=== PATIENT | female | born 1955 | race Caucasian/White ===

== ENCOUNTER 2025-05-05 20:02 | Emergency (ER) | payer MEDICARE, OTHER, SELFPAY ==
[2025-05-05 20:11] VITALS: BP 122/75
[2025-05-05 23:10] VITALS: BMI 29.5
[2025-05-05 23:13] VITALS: BP 136/80
--- NOTE | 2025-05-05 23:40 | ED.GENMED ---
History of Present Illness
General
Chief Complaint: Fall
Source: patient and spouse
Exam Limitations: none
Time Seen by Provider: 05/05/25 22:42
Nursing documentation reviewed up to this point in time: agreed with
History of Present Illness
History of Present Illness:
Note:
CHIEF COMPLAINT(S)
Left elbow pain and swelling following a fall.
HISTORY OF PRESENT ILLNESS
The patient is a 70-year-old female who sustained an injury to her left elbow after tripping in the dark over a cement block. The patient reported significant pain in the left elbow which she can tolerate when the arm is held still, but experiences
an 'ache' upon movement. The pain level is manageable when stationary. There is noticeable swelling around the elbow, and the injury was confirmed as a fracture. The patient denies any injuries elsewhere and reports no head trauma or loss of
consciousness.
PHYSICAL EXAM
General: Alert, no acute distress.
Skin: Warm, dry.
Musculoskeletal: Swelling and tenderness noted in the left elbow region. Patient able to hold arm still with minimal discomfort but reports ache with movement.
Respiratory: Respirations are non-labored.
Neurological: Alert and oriented to person, place, time, and situation, no focal neurological deficit observed.
PLAN
The patient will be placed in a splint and provided with a sling for immobilization of the left elbow. Follow-up will be arranged with an orthopedic surgeon for further management of the fracture. The patient was offered pain relief medication.
DIFFERENTIAL DIAGNOSIS
The Differential Diagnosis includes, in no particular order and is not limited to:
1. Elbow fracture
2. Elbow dislocation
3. Soft tissue injury
4. Contusion
5. Radial head fracture
6. Bursitis
7. Synovitis
8. Olecranon fracture
9. Ligamentous sprain
10. Joint effusion
Disposition:
SUMMARY OF ENCOUNTER
The patient is a 70-year-old female who presented with left elbow pain and swelling after a ball impacted her elbow. An X-ray confirmed a proximal ulna fracture. The primary concern was to manage the fracture through immobilization to prevent
further injury and plan the next steps for specialized orthopedic care. The patient was placed in a splint and provided with a sling for immobilization.
PLAN
The plan includes immobilization of the affected elbow using a splint and sling. The patient intends to follow up with [facility] for specialized management of the fracture.
PATIENT EDUCATION AND COUNSELING
The patient was advised on the importance of keeping the arm immobilized in the splint and sling and to avoid any activities that might exacerbate the injury. She was informed about the nature of the fracture and the need to follow up with an
orthopedic dentist.
FOLLOW-UP INSTRUCTIONS
The patient has arranged to follow up with [facility] for further evaluation and management of her proximal ulna fracture.
MEDICATION RECONCILIATION
Pain relief medication was offered to the patient for the management of discomfort associated with the fracture.
MEDICAL DECISION MAKING
-Complexity of Data Reviewed: Chronic conditions affecting care. Differential Diagnosis includes: Elbow fracture, Elbow dislocation, Soft tissue injury, Contusion, Radial head fracture, Bursitis, Synovitis, Olecranon fracture, Ligamentous sprain,
Joint effusion.
DIAGNOSIS
Proximal ulna fracture (ICD-10 code: S52.20XA).
Phy Exam
Physical Exam
Physical Exam:
.
Course
Orders/Labs/Results
Orders:
Orders
05/05/25 20:11
CR Elbow - Left Min 3 Views Urgent
Comment:
Reason For Exam: fall
05/05/25 22:55
Splints/Slings/Crut- Treatment ONCE
05/05/25 23:48
Ibuprofen [Motrin] 600 mg .ROUTE .STK-MED ONE
05/05/25 23:50
Ibuprofen [Motrin] 600 mg PO NOW STA
Vital Signs
Initial and Last Documented VS:
Initial Vital Signs
Temp Pulse Resp BP Pulse Ox
98.1 F 85 18 122/75 100
05/05/25 20:11 05/05/25 20:11 05/05/25 20:11 05/05/25 20:11 05/05/25 20:11
Last Documented Vital Signs
Temp Pulse Resp BP Pulse Ox
98.1 F 78 18 136/79 95
05/05/25 20:11 05/06/25 00:05 05/06/25 00:05 05/05/25 23:52 05/05/25 23:51
*Pulse Oximetry
SaO2: 99
Oxygen Mode of Delivery: Room air
Patient hypoxic: no
*Critical Care Note
Total Time (30-74mins, 75-104mins- exclusive of procedures): Not Applicable
ED Attending Note
-
Portions of this chart may have been created with voice recognition software.� Occasional wrong word or��sound alike� substitutions may have occurred due to the inherent limitations of voice recognition software.
Discharge Plan
Departure
Patient Disposition: Home (Routine Discharge)
Date of Disposition: 05/05/25
Time of Disposition: 23:40
Patient with high blood pressure during this ER visit?: Yes
Discharge Problem:
Elbow fracture, left
Instructions: Preventing falls in adults, Elbow Fracture, Adult ED, How to use a shoulder sling - ED (DC), BLOOD PRESSURE
Prescriptions:
No Action
ibuprofen 200 MG tablet
400 mg PO PRN PRN (Reason: PAIN)
Patient Comments:
1-2X/WEEK
lisinopril 5 MG tablet
5 mg PO DAILY
ibuprofen-diphenhydramine HCl [Ibuprofen PM] 1 EACH capsule
1 tab PO PRN PRN (Reason: pain)
Patient Comments:
1-2x/week
Melatonin 3 mg Tablet
3 mg PO HS
Patient Comments:
1-2x/week
Vitamin D
50 mcg PO DAILY
Referrals:
D'Rubén,Nisa, TOLL COLLECTOR [Family Provider, Internal Medicine]
Activity Restrictions/Additional Instructions:
Thank You for choosing [facility].
It was a pleasure meeting you and taking part in your care. We hope for your continued healing and wellness.
Please read discharge instructions in their entirety. However, they are for general education and may not describe your exact diagnosis at discharge. Information on your ER visit and medical conditions were discussed with you along with appropriate
follow up information...
If indicated, please take your medications as instructed and indicated on discharge paperwork.
Please schedule a follow up appointment as directed. Call to schedule an appointment
Please return to the emergency department with ANY change in, persisting, or worsening of symptoms. If any of your symptoms do not improve, or persist, or become more severe within 6-12 hours, please return to the emergency department for further
care.
Please return to the emergency department if you develop a headache, neck pain/stiffness, fever greater than 100.4F, chest pain, shortness of breath, persistent nausea, vomiting, slurred speech, difficulty walking, numbness/tingling, weakness, signs
of infection or any other symptoms that are worrisome to you.
If you have any questions or concerns please do not hesitate to call the Hospital at .
Interventions
Interventions:
*Risk Screen - Suicide Last Done: 05/05/25 20:10
*General Assessment Last Done: 05/05/25 23:11
*Neglect/Abuse Screening Last Done: 05/05/25 20:10
*ED- Fall Risk Assessment Last Done: 05/05/25 23:11
*ED COVID-19 Vaccine History Last Done: 05/05/25 23:11
*ED Influenza Vaccine History Last Done: 05/05/25 23:11
*Nursing Disposition Last Done: 05/06/25 00:05
ED-Musculoskeletal Assessment Last Done: 05/05/25 23:13
ED- Neurological Assessment Last Done: 05/05/25 23:13
ED-Skin Assessment Last Done: 05/05/25 23:13
Discharge Date and Time
Discharge Date/Time: 05/06/25 00:08
Print Language: SAMMARINESE
[2025-05-05] MEDS: MOTRIN 600 MG PO (23:50)
[2025-05-05 23:52] VITALS: BP 136/79
== END 2025-05-06 00:08 | disposition home or self-care (01) ==
LOC: EMR 20:02
PROVIDERS: EMERGENCY PHYSICIAN Student in an Organized Health Care Education/Training Program; FAMILY PHYSICIAN Nurse Practitioner Adult Health
DX: S52.022A Displaced fracture of olecranon process without intraarticular extension of left ulna, initial encounter for closed fracture (principal); W18.09XA Striking against other object with subsequent fall, initial encounter
CPT/HCPCS: 29105; 99283; 73080

== ENCOUNTER → 2025-05-09 11:34 | Outpatient (REF) | payer MEDICARE, OTHER, SELFPAY | LOC: REG 11:34 | PROVIDERS: ATTENDING PHYSICIAN Orthopaedic Surgery | DX: Z01.818 Encounter for other preprocedural examination (principal) | CPT/HCPCS: 93005 ==

== ENCOUNTER 2025-05-13 06:11 | Day surgery (SDC) | payer MEDICARE, OTHER, SELFPAY ==
[2025-05-13] VITALS (17 sets, daily range): BP systolic 78–156; BP diastolic 46–85; BMI 28.2
[2025-05-13] MEDS: CELEBREX 200 MG PO (11:26)
[2025-05-13] MEDS: TYLENOL 1000 MG PO (11:27)
[2025-05-13] MEDS: NORMOSOL-R/PLASMALYTE-A 1000 IV (11:28)
[2025-05-13] MEDS: SUBLIMAZE 25 MCG IV ×2 (14:04→14:14)
== END 2025-05-16 15:15 | disposition home or self-care (01) ==
LOC: SDS 06:11
PROVIDERS: ATTENDING PHYSICIAN Orthopaedic Surgery
DX: S52.022A Displaced fracture of olecranon process without intraarticular extension of left ulna, initial encounter for closed fracture (principal); W19.XXXA Unspecified fall, initial encounter
CPT/HCPCS: 24685; C1713